=== PATIENT | male | born 1940 | race Caucasian/White ===

== ENCOUNTER 2020-06-20 08:39 | Outpatient (CLI) | payer MEDICARE, SELFPAY ==
[2020-06-20 09:37] LABS: Basophils # 0.1 10^3/uL (0.0-0.1); Basophils % 0.7 %; Eosinophils # 0.3 10^3/uL (0.0-0.8); Eosinophils % 3.5 %; Hemoglobin 14.1 g/dL (11.7-16.6); Lymphocytes # 1.3 10^3/uL (0.8-4.8); Lymphocytes % 13.8 %; Mean Corpuscular HGB Conc 32.8 g/dL (30.0-36.0); Mean Corpuscular Hemoglobin 30.4 pg (28.0-34.0); Mean Corpuscular Volume 92.7 fL (80-94); Mean Platelet Volume 10.1 fL (7.4-10.4); Monocytes # 0.8 10^3/uL (0.2-0.9); Monocytes % 8.4 %; Neutrophils # 6.88 10^3/uL (1.8-7.7); Neutrophils % 73.2 %; Nucleated Red Blood Cells % 0 %; Platelet Count 572 10^3/cmm (130-400); Red Blood Count 4.64 10^6/uL (4.1-5.3); Red Cell Distribution Width 13.4 % (12.1-15.1); White Blood Count 9.4 10^3/uL (4.0-10.0)
[2020-06-20 09:53] LABS: Alanine Aminotransferase 16 U/L (0-41); Albumin Level 4.2 g/dL (3.5-5.2); Alkaline Phosphatase 121 IU/L (40-130); Anion Gap 12.1 (5-19); Aspartate Amino Transferase 17 U/L (0-40); Blood Urea Nitrogen 23 mg/dL (8-23); Calcium 9.2 mg/dL (8.5-10.5); Carbon Dioxide 30 mmol/L (22-29); Chloride 95 mmol/L (98-107); Globulin 3.9 g/dL (1.3-4.6); Glucose 137 mg/dL (65-115); Osmolality Calculated 282 mOsm/kg (285-295); Potassium 4.1 mmol/L (3.5-5.1); Sodium 133 mmol/L (136-145); Total Bilirubin 0.5 mg/dL (0.15-1.2); Total Protein 8.1 g/dL (6.6-8.7)
--- NOTE | 2020-06-20 13:20 | ONC FU_ITS ---
Dr. Gomes follow up note Patient: Alvin Phan Unit #: [id number]: 1940 Dicatated By: Braeden Gomes M.D.Date of Visit:Jun 20, 2020 Onc Med Follow-up/Prog Note History of Present Illness: Mr. Alvin Phan, is a 80-year-old gentleman with a history of isolated thrombocytosis was evaluated by Dr. Surya Fried, medical oncologist in [facility], in 2018. At that time CBC was in normal range except platelet count was in 550,000 range, as per medical record JAK2 mutation was performed and results showed very minimal number of alleles positive for the mutation, less than 3%, patient was observed in hematology clinic for about 2 years and then mid 2019 his follow-up labs shows white blood count gone up to 607,000 and patient also had some balance problems and some intermittent left hand weakness so he was started on hydroxyurea 500 mg p.o. daily and patient was asked to continue 81 mg aspirin. And planning was to repeat his Sarkis 2 mutation again. And on his follow-up on February 01, [address] Surya Fried, his platelet count was down to 501,[address] Fried that he stopped taking Hydrea because of worsening of his dizziness and he thought that was due to Hydrea., Patient was offered to take hydroxyurea 500 mg every other day or daily for 5 days/week but patient decided not to take hydroxyurea and switched his care to [place]. Patient said he was told he has some kind of blood cancer and he will need this medicine for rest of his life. 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 No night sweats, no fever chills, no weight loss, no peripheral lymphadenopathy, no abdominal fullness patient is a former smoker quit smoking more than 10 years ago. Medications: Aspirin 1 Tablet (of 81 mg) Tablet, enteric coated Oral daily, Citalopram Hydrobromide Tablet Oral, Lisinopril 1 Tablet (of 20 mg) Oral daily, Simvastatin 1 Tablet (of 5 mg) Oral daily Allergies: Sulfamethoxazole-Trimethoprim Review of Systems: Review of Systems is not available for this patient. Vital Signs: Performed on Jun 20, 2020 11:10 Height - 66.00 in Weight - 155.6 lbs (HIGH) BSA - 1.80 sq.m BMI - 25.11 Temperature - 97.5 F (LOW) Pulse - 67 /min Respiration - 24 /min BP - 143/70 mm(hg) (HIGH) O2 Sat - 97 % Pain - 0 Performance Status: 0 - Fully active, able to carry on all predisease activities without restrictions. (ECOG) Physical Examination: ENMT - No mouth sores, no thrush, no jaundice, Respiratory - Lungs are clear to auscultation, Cardiovascular - Regular rate and rhythm of heart, Abdomen - Soft, bowel sounds present, Extremities - No visible edema or peripheral lymphadenopathy. Lab/Imaging: Most recent lab results are not available for this patient. 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 Fried's office in [place] showed very minimal number of alleles positive for the mutation, e.g. less than 3% Patient was started on hydroxyurea 5 mg daily 5 days a week in mid 2019 but patient quit taking on his own because of worsening of dizziness and generalized weakness and fatigue, as per patient it did resolve after he stopped taking hydroxyurea. History of arthritis involving spine Plan: Discussed with patient regarding his labs white blood count 9.4 hemoglobin 14.1 hematocrit 43 platelets 572,000 with a normal differential CMP within normal limits except sodium 133 Clinically, patient is doing well with no new signs symptoms, no headaches, no chest pain or heaviness his follow-up CBC done today showed platelet count mildly elevated at 572,000 with a normal hemoglobin and white blood count, etiology of his isolated thrombocytosis is unclear could be due to underlying myeloproliferative disorder or reactive to chronic inflammation like arthritis, his Sarkis 2 mutation done earlier was inconclusive. At this point, patient is asymptomatic, will monitor his blood counts and he will return to clinic in 1 month with CBC, if there is a progression in his platelet count, will consider repeating Sarkis 2 mutation or myeloproliferative panel and ultrasound spleen. Signed By: Braeden Gomes M.D. <<Signature on File>>
== END 2020-06-20 08:40 | disposition home or self-care (01) ==
LOC: ONCMED 08:43
PROVIDERS: PCP Family Medicine; Referring Provider Family Medicine; Visit Provider Internal Medicine Hematology & Oncology
DX: D47.3 Essential (hemorrhagic) thrombocythemia (principal); M47.9 Spondylosis, unspecified; Z79.899 Other long term (current) drug therapy
CPT/HCPCS: 36415; 80053; 85025; 99203

== ENCOUNTER 2020-07-20 07:58 | Outpatient (CLI) | payer MEDICARE, SELFPAY ==
[2020-07-20 08:30] LABS: Basophils # 0.1 10^3/uL (0.0-0.1); Basophils % 0.8 %; Eosinophils # 0.6 10^3/uL (0.0-0.8); Hematocrit 41.6 % (42.0-52.0); Hemoglobin 13.5 g/dL (11.7-16.6); Lymphocytes # 1.4 10^3/uL (0.8-4.8); Lymphocytes % 15.7 %; Mean Corpuscular HGB Conc 32.5 g/dL (30.0-36.0); Mean Corpuscular Hemoglobin 30.1 pg (28.0-34.0); Mean Corpuscular Volume 92.7 fL (80-94); Monocytes # 0.8 10^3/uL (0.2-0.9); Monocytes % 9.3 %; Neutrophils # 5.98 10^3/uL (1.8-7.7); Neutrophils % 66.9 %; Nucleated Red Blood Cells % 0 %; Platelet Count 528 10^3/cmm (130-400); Red Blood Count 4.49 10^6/uL (4.1-5.3); Red Cell Distribution Width 13.6 % (12.1-15.1); White Blood Count 8.9 10^3/uL (4.0-10.0)
--- NOTE | 2020-07-20 10:22 | ONC FU_ITS ---
Dr. Gomes follow up note Patient: Alvin Phan Unit #: [id number]: 1940 Dicatated By: Braeden Gomes M.D.Date of Visit:Jul 20, 2020 Onc Med Follow-up/Prog Note History of Present Illness: Mr. Alvin Phan, is a 80-year-old gentleman with a history of isolated thrombocytosis was evaluated by Dr. Surya Fried, medical oncologist in [facility], in 2018. At that time CBC was in normal range except platelet count was in 550,000 range, as per medical record JAK2 mutation was performed and results showed very minimal number of alleles positive for the mutation, less than 3%, patient was observed in hematology clinic for about 2 years and then mid 2019 his follow-up labs shows white blood count gone up to 607,000 and patient also had some balance problems and some intermittent left hand weakness so he was started on hydroxyurea 500 mg p.o. daily and patient was asked to continue 81 mg aspirin. And planning was to repeat his Sarkis 2 mutation again. And on his follow-up on February 01, [address] Surya Fried, his platelet count was down to 501,[address] Fried that he stopped taking Hydrea because of worsening of his dizziness and he thought that was due to Hydrea., Patient was offered to take hydroxyurea 500 mg every other day or daily for 5 days/week but patient decided not to take hydroxyurea and switched his care to [place]. Patient said he was told he has some kind of blood cancer and he will need this medicine for rest of his life. 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 No night sweats, no fever chills, no weight loss, no peripheral lymphadenopathy, no abdominal fullness patient is a former smoker quit smoking more than 10 years ago. Came for follow-up, denies any specific complaints, no fever chills, no nausea or vomiting, no diarrhea or constipation, no headaches no blurred vision or double vision, no chest pain no shortness of breath or heaviness in chest. Tolerating daily aspirin well Medications: Aspirin 1 Tablet (of 81 mg) Tablet, enteric coated Oral daily, Citalopram Hydrobromide Tablet Oral, Lisinopril 1 Tablet (of 20 mg) Oral daily, Simvastatin 1 Tablet (of 5 mg) Oral daily Allergies: Sulfamethoxazole-Trimethoprim Review of Systems: Constitutional - Appetite is good and weight is stable. No fever, night sweats, or hot flashes. Energy level is good, ENMT - No sinus congestion/drainage. No mouth sores. No sore throat or difficulty swallowing, Hematologic/Lymphatic - No abnormal bruising or bleeding, Respiratory - No shortness of breath. No cough. No pleuritic pain or hemoptysis, Cardiovascular - No angina pain. No palpitations, Gastrointestinal - No nausea or vomiting. No heartburn or acid reflux. No diarrhea or constipation. No blood in the stool or black stools, Genitourinary (M) - No dysuria or hematuria. No urinary frequency. No urgency or incontinence, Musculoskeletal - No joint or bone pain, Neurologic - No headache or dizziness. No numbness or tingling. No other focal neurologic symptoms, Psychiatric - No anxiety or depression. No insomnia. Vital Signs: Performed on Jul 20, 2020 09:33 Height - 66.00 in Weight - 158.8 lbs (HIGH) BSA - 1.81 sq.m BMI - 25.63 Temperature - 98.0 F (LOW) Pulse - 62 /min Respiration - 18 /min BP - 143/78 mm(hg) (HIGH) O2 Sat - 98 % Pain - 0 Performance Status: 0 - Fully active, able to carry on all predisease activities without restrictions. (ECOG) Physical Examination: ENMT - No mouth sores, no thrush, no jaundice no peripheral lymphadenopathy, Respiratory - Lungs are clear to auscultation, Cardiovascular - Regular rate and rhythm of heart , Abdomen - Soft, bowel sounds present, Extremities - No visible edema or rash. Lab/Imaging: Test performed on Jun 20, 2020 09:06 Sodium 133 mmol/L Potassium 4.1 mmol/L Chloride 95 mmol/L CO2 30 mmol/L Anion Gap 12.1 BUN 23 mg/dL Creatinine 0.8 mg/dL Cr Clearance (Est) 73.52 mL/min Glucose 137 mg/dL Osmolality - Calculated 282 mOsm/kg Calcium 9.2 mg/dL Protein, Total 8.1 g/dL Albumin 4.2 g/dL Globulin 3.9 g/dL Bilirubin, Total 0.5 mg/dL ALT (SGPT) 16 U/L AST (SGOT) 17 U/L Alkaline Phosphatase 121 IU/L WBC 9.4 10 3/uL RBC 4.64 10 6/uL HGB 14.1 g/dL HCT 43.0 % MCV 92.7 fL MCH 30.4 pg MCHC 32.8 g/dL RDW 13.4 % Platelet Count 572 10 3/cmm MPV 10.1 fL Neutrophils 6.88 10 3/uL Lymphocytes 1.3 10 3/uL Monocytes 0.8 10 3/uL Eosinophils 0.3 10 3/uL Basophils 0.1 10 3/uL Neutrophil % 73.2 % Lymphocyte % 13.8 % Monocyte % 8.4 % Eosinophil % 3.5 % Basophils % 0.7 % NRBC % 0 % Impression: 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 Fried's office in [place] showed very minimal number of alleles positive for the mutation, e.g. less than 3% Patient was started on hydroxyurea 5 mg daily 5 days a week in mid 2019 but patient quit taking on his own because of worsening of dizziness and generalized weakness and fatigue, as per patient it did resolve after he stopped taking hydroxyurea., Now being observed History of arthritis involving spine Plan: Discussed with patient regarding his labs white blood count 8.9 hemoglobin 13.5 hematocrit 41.6 platelets 528,000 compared to 572,000 on June 20, 2020 Clinically, patient doing well with no new signs symptom, his follow-up labs shows further improvement in his mild isolated thrombocytosis, without any treatment., We will continue to monitor patient was advised to maintain hydration and continue to take baby aspirin daily and to return to clinic in 2 months with CBC Signed By: Braeden Gomes M.D. <<Signature on File>>
== END 2020-07-20 07:59 | disposition home or self-care (01) ==
LOC: ONCMED 08:00
PROVIDERS: PCP Family Medicine; Visit Provider Internal Medicine Hematology & Oncology
DX: D47.3 Essential (hemorrhagic) thrombocythemia (principal); R42 Dizziness and giddiness; R53.1 Weakness; R53.83 Other fatigue
CPT/HCPCS: 36415; 85025; G0463

== ENCOUNTER 2020-09-27 10:58 | Outpatient (CLI) | payer MEDICARE, SELFPAY ==
[2020-09-27 12:40] LABS: Basophils # 0.1 10^3/uL (0.0-0.1); Basophils % 0.8 %; Eosinophils # 0.2 10^3/uL (0.0-0.8); Eosinophils % 2.7 %; Hematocrit 43.1 % (42.0-52.0); Hemoglobin 13.8 g/dL (11.7-16.6); Lymphocytes # 1.6 10^3/uL (0.8-4.8); Lymphocytes % 18.4 %; Mean Corpuscular Hemoglobin 30.2 pg (28.0-34.0); Mean Corpuscular Volume 94.3 fL (80-94); Mean Platelet Volume 10.6 fL (7.4-10.4); Monocytes # 0.7 10^3/uL (0.2-0.9); Monocytes % 7.4 %; Neutrophils # 6.17 10^3/uL (1.8-7.7); Neutrophils % 70.5 %; Nucleated Red Blood Cells % 0 %; Platelet Count 566 10^3/cmm (130-400); Red Blood Count 4.57 10^6/uL (4.1-5.3); Red Cell Distribution Width 13.2 % (12.1-15.1); White Blood Count 8.8 10^3/uL (4.0-10.0)
--- NOTE | 2020-10-06 17:02 | ONC FU_ITS ---
[facility] Patient Note Patient: Alvin Phan Unit #: [id number]: 1940 Dictated By: Fanny CarlosDate of Visit: Sep 27, 2020 Onc MED Follow-Up/Prog Note Chief Complaint: thrombocytosis History of Present Illness: Mr. Hess is a 80-year-old gentleman with a history of isolated thrombocytosis. He reports he was evaluated by Dr. Surya Fried, medical oncologist in [facility], in 2018. At that time, his CBC was in normal range except platelet count was in 550,000 range. As per his medical record, the JAK2 mutation was performed and results showed very minimal number of alleles positive for the mutation, less than 3%. Mr Phan was observed in the hematology clinic for about 2 years and then mid 2019 his follow-up labs shows white blood count gone up to 607,000. Mr Phan reported some balance problems and some intermittent left hand weakness, so he was started on hydroxyurea 500 mg p.o. daily and patient was asked to continue 81 mg aspirin. His records indicate that Dr Fried was planning was to repeat his Sarkis 2 mutation again. And on his follow-up on February 01, [address] Surya Fried, his platelet count was down to 501,000. Mr Phan informed Dr. Fried that he stopped taking Hydrea because of worsening of his dizziness and he thought that was due to Hydrea. Mr Phan was encouraged to take hydroxyurea 500 mg every other day or daily for 5 days/week but patient decided not to take hydroxyurea. He was seen byt Dr Gomes for seocnd opinion and transferred his care to [place]. Mr Phan said he was told he has some kind of blood cancer and he will need this medicine for rest of his life. Patient denies any specific complaints, no fever chills, no nausea or vomiting, no diarrhea or constipation, no headaches no blurred vision, no more dizziness since he is off hydroxyurea, more energetic, as per patient he was feeling weak and tired while he was on hydroxyurea, which has resolved off of it. 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 No night sweats, no fever chills, no weight loss, no peripheral lymphadenopathy, no abdominal fullness patient is a former smoker quit smoking more than 10 years ago. Mr. Phan is here today for follow-up. His last appointment with Dr. Gomes was in July 2020. He was tolerating his platelet count of 528,000 well. He remains just on baby aspirin daily. He has not resumed the hydroxyurea. He states overall he feels great. He is able to do all his ADLs without any assistance. He denies any fever or chills. He denies any trouble swallowing. He has had no TIA type symptoms or any type of one-sided weakness or numbness. He denies any gastritis symptoms. He states he is eating well. He denies any nausea or vomiting. He has had no diarrhea or constipation. His ECOG is 0. Past Medical History: Bph Chronic obstructive pulmonary disease Hypertension Osteoarthritis Past Surgical History: Hernia repair Allergies: Sulfamethoxazole-Trimethoprim Medications: Aspirin 1 Tablet (of 81 mg) Tablet, enteric coated Oral daily Citalopram Hydrobromide Tablet Oral Lisinopril 1 Tablet (of 20 mg) Oral daily Simvastatin 1 Tablet (of 5 mg) Oral daily Family History: Mr. Phan's mother at age 19: child . Mr. Phan's father at age 79: melanoma. Mr. Phan has 1 brother who is : lung cancer. Social History: Mr. Phan is . He is a light tobacco smoker who smokes 0.5 packs/day. He has no history of drinking. Review Of Symptoms: Constitutional Denies fevers, chills, night sweats, excessive fatigue or weight loss. Allergic/Immunologic No reactions. Eyes Denies significant visual changes. No diplopia. No amaurosis. ENMT Denies changes in hearing, sore throat, mouth sores, difficulty or changes in swallowing ability, and/or sinus drainage. Hematologic/Lymphatic Denies easy bruising or bleeding. The patient denies any tender or palpable lymph nodes. Respiratory Denies dyspnea on exertion, chest pain, cough or hemoptysis. Denies orthopnea. Cardiovascular Denies anginal chest pain, palpitations or orthopnea. Gastrointestinal Denies nausea, vomiting, diarrhea, GI bleeding, or constipation. Denies change in bowel habits and/or stool color, no heartburn or early satiety. Genitourinary (M) Denies hematuria, dysuria, increased frequency, urgency, hesitancy or incontinence. Musculoskeletal Denies joint pain, swelling or redness. No decreased range of motion. Integumentary Denies chronic rashes, inflammation, ulcerations or skin changes. Neurologic Denies headache, blurred vision, and no areas of focal weakness or numbness. Normal gait. No sensory problems. Psychiatric Denies insomnia, depression, juan david or mood swings. Vital Signs: Performed on Sep 27, 2020 12:47 Height - 66.00 in Weight - 160.6 lbs (HIGH) BSA - 1.82 sq.m BMI - 25.92 Temperature - 97.6 F (LOW) Pulse - 67 /min Respiration - 18 /min BP - 132/64 mm(hg) O2 Sat - 96 % Pain - 0,0 - Fully active, able to carry on all predisease activities without restrictions. (ECOG) Physical Examination: Constitutional Alert, oriented, no acute distress. Skin pink, warm and dry. Head Normocephalic; atraumatic. Eyes Conjunctivae and sclerae are clear and without icterus. Pupils are reactive and equal. Neck Supple without masses or thyromegaly. No jugular venous distension. Hematologic/Lymphatic No petechiae or purpura. No tender or palpable lymph nodes in the cervical or supraclavicular areas. Respiratory Lungs are clear to auscultation without rhonchi or wheezing. Cardiovascular Regular rate and rhythm of heart without murmurs,clicks, gallops or rubs. Back/Spine Non-tender to palpation. Extremities No visible deformities, no cyanosis, clubbing or edema. Musculoskeletal No tenderness or swelling, normal range of motion without obvious weakness. Integumentary No rashes or lesions. Neurologic No sensory or motor deficits, normal cerebellar function, normal gait. Psychiatric Alert and oriented times three. Coherent speech. Verbalizes understanding of our discussions today. Laboratory:Test performed on Sep 27, 2020 11:10 WBC 8.8 10 3/uL RBC 4.57 10 6/uL HGB 13.8 g/dL HCT 43.1 % MCV 94.3 fL MCH 30.2 pg MCHC 32.0 g/dL RDW 13.2 % Platelet Count 566 10 3/cmm MPV 10.6 fL Neutrophils 6.17 10 3/uL Lymphocytes 1.6 10 3/uL Monocytes 0.7 10 3/uL Eosinophils 0.2 10 3/uL Basophils 0.1 10 3/uL Neutrophil % 70.5 % Lymphocyte % 18.4 % Monocyte % 7.4 % Eosinophil % 2.7 % Basophils % 0.8 % NRBC % 0 % Test performed on Jun 20, 2020 09:06 Sodium 133 mmol/L Potassium 4.1 mmol/L Chloride 95 mmol/L CO2 30 mmol/L Anion Gap 12.1 BUN 23 mg/dL Creatinine 0.8 mg/dL Cr Clearance (Est) 73.52 mL/min Glucose 137 mg/dL Osmolality - Calculated 282 mOsm/kg Calcium 9.2 mg/dL Protein, Total 8.1 g/dL Albumin 4.2 g/dL Globulin 3.9 g/dL Bilirubin, Total 0.5 mg/dL ALT (SGPT) 16 U/L AST (SGOT) 17 U/L Alkaline Phosphatase 121 IU/L Impression: 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 Fried's office in [place] [employer] showed very minimal number of alleles positive for the mutation, e.g. less than 3% Patient was started on hydroxyurea 5 mg daily 5 days a week in mid 2019 but patient quit taking on his own because of worsening of dizziness and generalized weakness and fatigue, as per patient it did resolve after he stopped taking hydroxyurea., Now being observed History of arthritis involving spine Plan: PROBLEMS ADDRESSED TODAY 1. Thrombocytosis A. Continue observation as his platelet count is 566,000 today. B. Continue anticoagulation with 1 baby aspirin daily and enouraged to continue with hydration. C. Labs from today were reviewed in detail and discussed with Mr. Phan and a copy was given to him. WBC 8.8, hemoglobin 13.8 platelets 566,000 ANC is 6200. 2. Follow-up plan: A. We will plan to see him back in 2 months with CBC CMP for monitoring of his thrombocytosis. B. Mr. Phan has been encouraged to contact us in the interim should questions or problems arise. Signed By: Fanny Carlos-, [facility] Braeden Gomes MD <<Signature on File>>
== END 2020-09-27 10:59 | disposition home or self-care (01) ==
LOC: ONCMED 11:04
PROVIDERS: PCP Family Medicine; Visit Provider Nurse Practitioner
DX: D47.3 Essential (hemorrhagic) thrombocythemia (principal); F17.210 Nicotine dependence, cigarettes, uncomplicated; Z79.82 Long term (current) use of aspirin
CPT/HCPCS: 36415; 85025; 99214

== ENCOUNTER → 2022-02-27 11:54 | Outpatient (BNVA) | payer MEDICARE, SELFPAY | PROVIDERS: PCP Family Medicine; Visit Provider Nurse Practitioner Family | DX: R07.9 Chest pain, unspecified (principal) | CPT/HCPCS: 71046 ==

== ENCOUNTER → 2022-09-08 10:50 | Outpatient (BNVA) | payer MEDICARE, SELFPAY | PROVIDERS: PCP Family Medicine; Visit Provider Family Medicine | DX: J02.9 Acute pharyngitis, unspecified (principal) | CPT/HCPCS: 87071 ==

== ENCOUNTER → 2023-09-29 11:39 | Outpatient (BNVA) | payer MEDICARE, SELFPAY | PROVIDERS: PCP Family Medicine; Visit Provider Family Medicine | DX: I10 Essential (primary) hypertension (principal); Z12.5 Encounter for screening for malignant neoplasm of prostate | CPT/HCPCS: 80053; 80061; 84443; 85025; G0103 ==

== ENCOUNTER → 2023-12-15 10:38 | Outpatient (BNVA) | payer MEDICARE, SELFPAY | PROVIDERS: PCP Family Medicine; Visit Provider Nurse Practitioner Family | DX: N39.0 Urinary tract infection, site not specified (principal) | CPT/HCPCS: 81003; 87077; 87086; 87184 ==

== ENCOUNTER → 2024-01-05 09:35 | Outpatient (BNVA) | payer MEDICARE, SELFPAY | PROVIDERS: PCP Family Medicine; Visit Provider Family Medicine | DX: R19.7 Diarrhea, unspecified (principal) | CPT/HCPCS: 87177; 87209; 87493 ==

== ENCOUNTER 2024-06-14 12:49 | Emergency (ER) | payer MEDICARE, SELFPAY ==
--- NOTE | 2024-06-14 12:57 | CT_ITS ---
WS: [id number] CT FACIAL BONES HISTORY: fall/trauma; R periorbital trauma TECHNIQUE: Images obtained from the supraorbital location through the mandible. Soft tissue and bone windows are reviewed. Coronal and sagittal reformats have also been submitted. DLP: 2036.[address] scans at [facility] use at least one of these dose optimization techniques: automated e xposure control; mA and/or kV adjustment per patient size (includes targeted exams where dose is matc hed to clinical indication); or iterative reconstruction. COMPARISON: None available. No facial bone fractures are identified. Zygomatic arches and the nasal bones are intact. No air-flui d levels within the sinuses. There is a large soft tissue hematoma with laceration centered over the RIGHT orbit and globe. No retro-orbital hematoma. Normal soft tissues. Mild mucoperiosteal thickening in the LEFT maxillary sinus. CT/CT facial bones wo con* [id number] IMPRESSION: No facial bone fracture.
--- NOTE | 2024-06-14 12:57 | CT_ITS ---
WS: [id number] CT HEAD NONCONTRAST HISTORY: trauma/fall TECHNIQUE: Contiguous axial imaging performed through the brain. Bone and soft tissue windows. Sagitt al and coronal reformats reviewed. All CT scans at [facility] use at least one of these dose optimization techniques: automated exposure control; mA and/or kV adjustment per patient size (includ es targeted exams where dose is matched to clinical indication); or iterative reconstruction. DLP: 2036.39 mGy.cm COMPARISON: None available. No acute intracranial hemorrhage, midline shift or mass effect. Moderate atrophy and moderate small vessel ischemic type changes bilaterally throughout the white mat ter. Ventricles: Normal size with no hydrocephalus. No inferior displacement of the cerebellar tonsils. Paranasal sinuses: As visualized are clear. Mastoid air cells: Well pneumatized. Calvarium and scalp: No skull fracture. There is a large soft tissue laceration with hematoma centere d over the RIGHT orbit. CT/CT head wo con* [id number] IMPRESSION: 1. No acute intracranial hemorrhage or edema. 2. Moderate atrophy and small vessel disease. 3. Large soft tissue laceration centered over the RIGHT orbit.
--- NOTE | 2024-06-14 12:57 | CT_ITS ---
WS: [id number] CT CERVICAL SPINE HISTORY: fall TECHNIQUE: Contiguous 2.0 mm axial imaging performed through the entire cervical spine. Sagittal and coronal reformats also performed. All CT scans at [facility] use at least one of these dose o ptimization techniques: automated exposure control; mA and/or kV adjustment per patient size (include s targeted exams where dose is matched to clinical indication); or iterative reconstruction. DLP: 2036.39 mGy.cm COMPARISON: None available. Advanced degenerative changes in the cervical spine. Severe disc space narrowing at C4-5, C5-6 and C6 -7 with osteophytes. No fractures. Facet joints are narrowed but normally aligned. Craniocervical larry ction is negative. Lateral masses of C1 and C2 are aligned. The odontoid is intact. No acute cervical spine fracture. Multilevel marked and advanced facet joint arthropathy. Central and bilateral forami nal stenosis is moderate to severe at C4-5, C5-6 and C6-7. Lung apices are clear. CT/CT cervical spin wo con* [id number] IMPRESSION: 1. No acute cervical spine fracture. 2. Advanced facet joint arthropathy and spondylosis. Central canal stenosis at C4-5, C5-6 and C6-7.
[2024-06-14 12:58] VITALS: BP 124/69; PULSE 84; RESP 18; TEMP 36.7; O2SAT 95
--- NOTE | 2024-06-14 12:58 | ED_ITS ---
HPI - Fall 2 General: Chief Complaint: Wound/Laceration Stated Complaint: Fall, Lac rt eye Time Seen by Provider: 06/14/24 12:51 Source: patient and EMS Mode of arrival: EMS Limitations: no limitations History of Present Illness: Patient is a very nice 84-year-old male presents to ED today for evaluation following a fall. Patient states he was walking to Dr. Tomas's office as he was scheduled for a blepharoplasty to the right eye when he accidentally fell. Patient states my legs could not keep up with my body . States he fell onto asphalt. He denies lightheadedness, dizziness, chest pain, shortness of breath, or palpitations prior to the fall. He states he has felt normal following the fall. He states he hit his face on the asphalt and sustained a laceration above his right eye. Last tetanus is unknown. He has very minor abrasions to his hands where he tried to catch himself . He is not on anticoagulation. MD complaint: fall Onset (ago): hour(s) Fall from: standing Fall witnessed: yes, by bystander Place fall occurred: street Loss of consciousness: None Prolonged down time: no Symptoms prior to fall: none Context: history of frequent falls Associated symptoms-after fall: Reports no associated symptoms; Denies abdominal pain, chest pain, headache(s), hematuria, lightheadedness or neck pain Related Data Home Medications Medication Instructions Recorded Confirmed aspirin 81 mg tablet,delayed 81 mg PO DAILY 02/08/20 06/09/24 release (Adult Low Dose Aspirin) citalopram 40 mg tablet 40 mg PO DAILY 02/08/20 06/09/24 finasteride 5 mg tablet 5 mg PO DAILY 02/08/20 06/09/24 latanoprost 0.005 % eye drops 1 drop ophthalmic (eye) DAILY 02/08/20 06/09/24 (Xalatan) lisinopril 20 mg tablet 20 mg PO DAILY 02/08/20 06/09/24 Previous Rx's Medication Instructions Recorded dicyclomine 10 mg capsule 10 mg PO TID #30 caps 01/04/24 Allergies Allergy/AdvReac Type Severity Reaction Status Date / Time Sulfa (Sulfonamide Allergy unk Verified 06/09/24 09:37 Antibiotics) Review of Systems 2 Eyes: Reports: other (swelling/bruising/laceration R periorbital region); Denies: change in vision, blurry vision, photophobia, eye discharge, floaters or seeing flashes ENMT: Denies: throat pain, odynophagia, ear or mastoid pain, ear discharge, nasal discharge, epistaxis or sinus pain Card: Denies: chest pain, palpitations, lightheadedness, syncope or pre- syncope Resp: Denies: dyspnea or pain on inspiration GI: Denies: abdominal pain : Denies: flank pain or hematuria Musc: Denies: neck pain, back pain, extremity pain or joint pain Skin/Breast: Reports: other (abrasions/laceration) Neuro: Denies: headache(s), numbness in extremities, weakness in extremities, sensory changes or dizziness PFSH ED 2 PFSH: Medical History Enrolled in chronic care management Depression Hypertension GERD (gastroesophageal reflux disease) BPH (benign prostatic hyperplasia) Social History Smoking and tobacco/nicotine status: never used tobacco/nicotine service: Yes Current occupational status: retired Physical Exam 2 Const: COMMON NORMALS: no acute distress, average body habitus, patient oriented x3, no limitations, healthy appearing, alert and well nourished G ENERAL APPEARANCE: cooperative ORIENTATION/CONSCIOUSNESS: Yes awake, Yes oriented to person, Yes oriented to place and Yes oriented to time HENMT: COMMON NORMALS: normocephalic, atraumatic, TM's normal bilaterally and Normal external nose present HEAD & SCALP: normal to inspection, normocephalic and atraumatic; no Rico's sign, no hematoma and no raccoon eyes FACE & SINUS IMAGES: 1. laceration 2. inferior periorbital ecchymosis NOSE: Normal external nose present TYMPANIC MEMBRANE: TM's normal bilaterally MOUTH: other (no intraoral injuries noted) Eye: COMMON NORMALS: Equal, round and reactive pupils present, EOMs intact bilaterally and conjunctivae normal GENERAL EYE: appearance normal, both eyes and all related structures and normal light reflex VISUAL ACUITY: Yes acuity normal PERIORBITAL: periorbital findings abnormal positive right periorbital ecchymosis CONJUNCTIVA: Yes conjunctivae normal SCLERA: sclerae normal CORNEA: Yes corneas normal PUPIL: Yes Equal, round and reactive pupils present DIRECT OPHTHALMOSCOPY: Yes normal light reflex Neck/C-Spine: COMMON NORMALS: full ROM GENERAL: Yes normal visual inspection CERVICAL SPINE: Yes cervical ROM normal, No pain with cervical ROM, No Cervical spine tenderness, No step off deformity and No Paracervical muscle tenderness Chest: COMMONS NORMALS: normal inspection of the chest and normal palpation of entire chest wall Resp: COMMON NORMALS: normal respiratory effort and clear to auscultation bilaterally AUSCULTATION: clear to auscultation bilaterally Cardio: COMMON NORMALS: regular rate and regular rhythm RATE: regular rate RHYTHM: regular rhythm GI: COMMON NORMALS: Normal to inspection, nondistended, normoactive bowel sounds present, Soft to palpation, non-tender, No hepatosplenomegaly present and no masses INSPECTION: Yes normal to inspection and No abdominal wall ecchymosis AUSCULTATION: Yes normoactive bowel sounds PALPATION: Yes Soft to palpation and Yes No hepatosplenomegaly present Back/Pelvis: COMMON NORMALS: thoracic and lumbar spine normal to inspection, no thoracic nor lumbar tenderness and thoraco-lumbar ROM normal Extremity: COMMON NORMALS: normal to inspection and full ROM NARRATIVE EXTREMITY EXAM: minor abrasions palmar hands GENERAL: Yes normal exam except as noted Neuro: SUHA COMA SCALE: document GCS findings [place] coma scale eye opening: Spontaneous [place] coma scale verbal response: Orientated Suha coma scale motor response: Obey commands Suha coma scale total score: 15 COMMON NORMALS: patient oriented x3, moves all extremities, no focal motor deficits and no sensory deficits noted SENSORIUM/ORIENTATION: Yes alert, Yes oriented to person, Yes oriented to place and Yes oriented to time SPEECH: speech normal GAIT: Yes Normal gait present Skin: TRAUMA: abrasion and laceration Procedures Laceration Laceration 1: Site: face Side (If applicable): right Size (cm): 3.5 Description: linear Depth: involves muscle layer Local Anesthetic: lidocaine 1% and with epi Amount of anesthesia used (mL): 4.0 Pre-repair: wound explored and irrigated extensively Skin layer closed with: nylon Size (cm): 5-0 Number of sutures: 7 Technique: simple, interrupted and running Subcutaneous layer closed with: chromic gut Size: 4-0 Number of sutures: 3 Technique: simple, interrupted Course 2 Vital Signs: Vital signs: Vital Signs Temperature 98.1 F 06/14/24 12:58 Pulse Rate 71 06/14/24 13:56 Respiratory Rate 18 06/14/24 13:56 Blood Pressure 123/71 06/14/24 13:56 Pulse Oximetry 93 06/14/24 13:56 Oxygen Delivery Me thod Room Air 06/14/24 13:56 MDM - Fall Medical Decision Making Patient is a nice 84-year-old male here following a fall as he was walking. He states his legs got away from [place] . Patient never had any episodes of chest pain, shortness of breath, dizziness, palpitations. He states he has felt normal following the fall. He sustained a laceration to his right superior periorbital region that was copiously irrigated and repaired as documented. His tetanus was updated. CT scans of his head, cervical spine, and facial bones were obtained and unremarkable. His vital signs have been stable throughout his stay. He has no other physical complaints. He was ambulatory here without difficulty or assistance prior to discharge. Return to ED precautions given. Wound care/infection precautions discussed. Medical Records I reviewed the patient's medical records. Lab Data Radiology Impressions Cervical Spine CT 06/14/24 12:57 IMPRESSION: 1. No acute cervical spine fracture. 2. Advanced facet joint arthropathy and spondylosis. Central canal stenosis at C4-5, C5-6 and C6-7. Face CT 06/14/24 12:57 IMPRESSION: No facial bone fracture. Head CT 06/14/24 12:57 IMPRESSION: 1. No acute intracranial hemorrhage or edema. 2. Moderate atrophy and small vessel disease. 3. Large soft tissue laceration centered over the RIGHT orbit. All radiology interpretation(s) finalized by discharge Discharge Plan Discharge Patient Disposition: Home Clinical Impression: Fall Qualifiers: Encounter type: initial encounter Qualified Code(s): W19.XXXA - Unspecified fall, initial encounter Laceration of periorbital area Qualifiers: Encounter type: initial encounter Qualified Code(s): S01.81XA - Laceration without foreign body of other part of head, initial encounter Contusion of periorbital region, right Qualifiers: Encounter type: initial encounter Qualified Code(s): S05.11XA - Contusion of eyeball and orbital tissues, right eye, initial encounter Condition: Stable Prescriptions: No Action finasteride 5 mg tablet 5 mg PO DAILY aspirin [Adult Low Dose Aspirin] 81 mg tablet,delayed release (DR/EC) 81 mg PO DAILY lisinopril 20 mg tablet 20 mg PO DAILY citalopram 40 mg tablet 40 mg PO DAILY latanoprost [Xalatan] 0.005 % drops 1 drop ophthalmic (eye) DAILY dicyclomine 10 mg capsule 10 mg PO TID Qty: 30 0RF Discharge Orders: Discharge ED (Routine); Ordered 06/14/24 Ordered By: Nely Avina Referrals: Martha Harden MD [Primary Care Provider] - Patient Instructions: Facial Laceration (ED) Activity Restrictions/Additional Instructions: Keep wound/laceration clean with warm soap and water twice daily. Monitor for signs of infection such as redness, swelling, increased pain, or drainage. Please seek medical re-evaluation if these occur. If you received sutures today these will need to be removed (unless you were told by the provider that they are absorbable). The provider should have discussed with you the length of time until removal-7 DAYS. You need to return to the ED for severe headache, change or loss of vision, repetitive episodes of vomiting, chest pain, shortness of breath, difficulty breathing, altered mental status/confusion, palpitations, generally feeling worse or unwell, or any other concerns you may have. Coding Level of Care Code ED [employer] for Gabriella Mansfield
[2024-06-14 13:03] VITALS: BP 124/59; PULSE 80; RESP 18; O2SAT 91
[2024-06-14] MEDS: tetanus-dipt-pertussis 0.5 mL SDV IM (13:14)
--- NOTE | 2024-06-14 13:16 | PC.NURSE ---
PATIENT LACERATION IRRIGATED AND HANDS CLEANED. PATIENT TOLERATED PROCEDURE WELL.
[2024-06-14 13:56] VITALS: BP 123/71; PULSE 71; RESP 18; O2SAT 93
[2024-06-14 14:07] VITALS: BP 123/71; PULSE 71; O2SAT 93
== END 2024-06-14 14:08 | disposition home or self-care (01) ==
PROVIDERS: Emergency Provider Physician Assistant; PCP Family Medicine
DX: S01.81XA Laceration without foreign body of other part of head, initial encounter (principal); S05.11XA Contusion of eyeball and orbital tissues, right eye, initial encounter; W19.XXXA Unspecified fall, initial encounter
CPT/HCPCS: 12052; 70450; 70486; 72125; 90471; 90715; 99284

== ENCOUNTER → 2024-07-05 11:41 | Outpatient (BNVA) | payer MEDICARE, SELFPAY | PROVIDERS: PCP Nurse Practitioner Family; Visit Provider Nurse Practitioner Family | DX: I10 Essential (primary) hypertension (principal) | CPT/HCPCS: 80053; 80061; 84443; 85025 ==

== ENCOUNTER → 2024-08-01 12:00 | Outpatient (BNVA) | payer MEDICARE, SELFPAY | PROVIDERS: PCP Nurse Practitioner Family; Visit Provider Nurse Practitioner Family | DX: R68.89 Other general symptoms and signs (principal) | CPT/HCPCS: 84439; 84443 ==

== ENCOUNTER → 2024-10-18 10:43 | Outpatient (BNVA) | payer MEDICARE, SELFPAY | PROVIDERS: PCP Nurse Practitioner Family; Visit Provider Nurse Practitioner Family | DX: E03.9 Hypothyroidism, unspecified (principal) | CPT/HCPCS: 84439; 84443 ==

== ENCOUNTER → 2024-11-22 11:15 | Outpatient (BNVA) | payer MEDICARE, SELFPAY | PROVIDERS: PCP Nurse Practitioner Family; Visit Provider Nurse Practitioner Family | DX: R39.9 Unspecified symptoms and signs involving the genitourinary system (principal); N39.0 Urinary tract infection, site not specified | CPT/HCPCS: 81000; 87086 ==

== ENCOUNTER → 2025-01-16 09:20 | Outpatient (BNVA) | payer MEDICARE, SELFPAY | PROVIDERS: PCP Nurse Practitioner Family; Visit Provider Nurse Practitioner Family | DX: Z20.822 Contact with and (suspected) exposure to COVID-19 (principal) | CPT/HCPCS: 87426 ==

== ENCOUNTER → 2025-04-18 10:41 | Outpatient (BNVA) | payer MEDICARE, SELFPAY | PROVIDERS: PCP Nurse Practitioner Family; Visit Provider Nurse Practitioner Family | DX: Z12.5 Encounter for screening for malignant neoplasm of prostate (principal); I10 Essential (primary) hypertension; E03.9 Hypothyroidism, unspecified | CPT/HCPCS: 80053; 80061; 84443; 85025; G0103 ==

== ENCOUNTER → 2025-05-25 10:22 | Outpatient (BNVA) | payer MEDICARE, SELFPAY | PROVIDERS: PCP Nurse Practitioner Family; Visit Provider Family Medicine | DX: R39.9 Unspecified symptoms and signs involving the genitourinary system (principal) | CPT/HCPCS: 81000 ==